=== PATIENT | female | born 1990 | race Caucasian/White ===

== ENCOUNTER 2016-05-22 12:26 | Emergency (ER) | payer OTHER ==
[~2016-05-22] VITALS: Ht 157.5 cm; Wt 79.2 kg
[2016-05-22 12:42] VITALS: BP 126/84
[2016-05-22 13:34] LABS: BASOPHIL % 0.3 % (0-2); PLATELET COUNT 289 x10^3mcL (130-400)
[2016-05-22 13:39] LABS: RED CELL DISTRIBUTION WIDTH 16.6 % (11.5-14.5)
== END 2016-05-22 15:09 | disposition home or self-care (01) ==
LOC: ED 12:26
PROVIDERS: Emergency Medicine
DX: O20.0 Threatened abortion (principal); Z3A.01 Less than 8 weeks gestation of pregnancy
CPT/HCPCS: Q0092

== ENCOUNTER 2017-07-04 15:04 | Emergency (ER) | payer OTHER ==
[~2017-07-04] VITALS: Ht 157.5 cm; Wt 91.8 kg
[2017-07-04 15:17] VITALS: Ht 157.5 cm; Wt 91.8 kg
[2017-07-04 18:24] LABS: BASOPHIL % 0.5 % (0-2); PLATELET COUNT 293 x10^3mcL (130-400)
[2017-07-04 19:24] VITALS: BP 122/74
== END 2017-07-04 19:24 | disposition home or self-care (01) ==
LOC: ED 15:04
PROVIDERS: Emergency Medicine
DX: N93.9 Abnormal uterine and vaginal bleeding, unspecified (principal); J45.909 Unspecified asthma, uncomplicated
CPT/HCPCS: 36415

== ENCOUNTER 2018-11-26 15:37 | Emergency (ER) | payer OTHER ==
[~2018-11-26] VITALS: Ht 160 cm; Wt 83.5 kg
[2018-11-26 15:49] VITALS: Ht 160 cm; Wt 83.5 kg
[2018-11-26 16:13] LABS: CARBON DIOXIDE 27.6 mmol/L (21-32); CHLORIDE SERUM 102 mmol/L (98-107); CREATININE SERUM 0.5 mg/dL (0.6-1.0); GFR1 > 60 mL/min; GLUCOSE SERUM 104 mg/dL (74-106); POTASSIUM SERUM 4.4 mmol/L (3.5-5.1); SODIUM SERUM 137 mmol/L (136-145)
[2018-11-26 16:19] LABS: ALBUMIN 3.8 g/dL (3.4-5.0); ALKALINE PHOSPHATASE 89 U/L (46-116); ALT/SGPT 37 U/L (14-59); AST/SGOT 31 U/L (15-37); BILIRUBIN TOTAL 0.6 mg/dL (0.20-1.00); TOTAL PROTEIN, SERUM 8.2 g/dL (6.4-8.2)
[2018-11-26 16:58] LABS: BASOPHIL % 0.3 % (0-2); PLATELET COUNT 273 x10^3mcL (130-400); RED CELL DISTRIBUTION WIDTH 13.7 % (11.5-14.5)
[2018-11-26 17:53] LABS: microscopic required? NO
[2018-11-26 18:06] LABS: UA SPECIFIC GRAVITY <=1.005 (1.005-1.035); urine erythrocyte NEGATIVE (NEGATIVE)
[2018-11-26 18:15] LABS: AMPHETAMINE QUAL UR NONE DETECTED (See below)
[2018-11-26 19:32] VITALS: BP 124/64
== END 2018-11-26 19:44 | disposition home or self-care (01) ==
LOC: ED 15:37
PROVIDERS: Emergency Medicine
DX: R11.10 Vomiting, unspecified (principal); R19.7 Diarrhea, unspecified; R10.9 Unspecified abdominal pain; F32.9 Major depressive disorder, single episode, unspecified; F41.9 Anxiety disorder, unspecified; E66.9 Obesity, unspecified; J45.909 Unspecified asthma, uncomplicated; Z68.32 Body mass index [BMI] 32.0-32.9, adult
CPT/HCPCS: J0500; J1885; J2405; J7030

== ENCOUNTER 2019-11-11 12:23 | Observation (INO) | payer OTHER ==
[~2019-11-11] VITALS: Ht 160 cm; Wt 71.7 kg
[2019-11-11 13:21] LABS: BASOPHIL % 0.1 % (0-2); PLATELET COUNT 202 x10^3mcL (130-400); RED CELL DISTRIBUTION WIDTH 12.5 % (11.5-14.5)
[2019-11-11 14:00] LABS: microscopic required? YES; urine erythrocyte 3+ (NEGATIVE)
[2019-11-11 14:08] LABS: CALCIUM 9.4 mg/dL (8.5-10.1); CARBON DIOXIDE 23.9 mmol/L (21-32); CHLORIDE SERUM 104 mmol/L (98-107); CREATININE SERUM 0.5 mg/dL (0.6-1.0); GFR1 > 60 mL/min; GLUCOSE SERUM 104 mg/dL (74-106); POTASSIUM SERUM 4.1 mmol/L (3.5-5.1); SODIUM SERUM 136 mmol/L (136-145)
[2019-11-11 14:12] LABS: ALBUMIN 3.5 g/dL (3.4-5.0); ALKALINE PHOSPHATASE 140 U/L (46-116); ALT/SGPT 35 U/L (14-59); AST/SGOT 22 U/L (15-37); BILIRUBIN TOTAL 0.54 mg/dL (0.20-1.00); TOTAL PROTEIN, SERUM 7.6 g/dL (6.4-8.2)
[2019-11-11 14:44] LABS: T3 TOTAL > 8.00 ng/mL
[2019-11-11 17:41] LABS: FREE T4 7.07 ng/dL (0.76-1.46)
[2019-11-11 18:15] VITALS: BP 151/74
[2019-11-11 20:21] LABS: FREE THYROXINE INDEX 14.4 ug/dL (1.4-4.5); T4(THYROXINE) 30.1 ug/dL (4.7-13.3)
[2019-11-11 21:23] VITALS: BP 137/80
[2019-11-12 05:39] VITALS: BP 120/70
[2019-11-12 07:37] LABS: BASOPHIL % 0.1 % (0-2); PLATELET COUNT 171 x10^3mcL (130-400); RED CELL DISTRIBUTION WIDTH 12.6 % (11.5-14.5)
[2019-11-12 07:57] LABS: CALCIUM 9.6 mg/dL (8.5-10.1); CARBON DIOXIDE 24.6 mmol/L (21-32); CHLORIDE SERUM 105 mmol/L (98-107); CREATININE SERUM 0.3 mg/dL (0.6-1.0); GFR1 > 60 mL/min; GLUCOSE SERUM 93 mg/dL (74-106); MAGNESIUM 1.9 mg/dL (1.8-2.4); POTASSIUM SERUM 4.1 mmol/L (3.5-5.1); SODIUM SERUM 138 mmol/L (136-145)
[2019-11-12 08:52] VITALS: BP 124/70
[2019-11-12] MEDS ORDERED: IND20 PO (11:49)
[2019-11-12 13:30] VITALS: BP 130/63
[2019-11-12 14:08] VITALS: BP 130/63
[2019-11-12 16:13] VITALS: Ht 160 cm; Wt 71.7 kg
== END 2019-11-12 17:25 | disposition home or self-care (01) ==
LOC: ED 12:23 → DU 17:20
PROVIDERS: Emergency Medicine; ADMIT Internal Medicine; ATTEND Internal Medicine
DX: R07.89 Other chest pain (principal); F41.9 Anxiety disorder, unspecified; F32.9 Major depressive disorder, single episode, unspecified; J45.909 Unspecified asthma, uncomplicated; E05.90 Thyrotoxicosis, unspecified without thyrotoxic crisis or storm
CPT/HCPCS: 84439; 85378; G0378; J1720; J1800; J1885; J2060; J2405; J7030; Q0092